=== PATIENT | female | born 1940 | race Caucasian/White ===

== ENCOUNTER 2018-03-21 11:05 | Emergency (ER) | payer MEDICARE, BC ==
[~2018-03-21] VITALS: Ht 165.1 cm; Wt 65.0 kg
[~2018-03-21 11:05] MED LIST: ADLT ASA LOW81 MG PO; ANTIVERT12.5 MG PO; ASPIRIN81 MG PO; ATENOLOL100 MG OR; ATENOLOL50 MG PO; ATIVAN0.5 MG PO; CARDIZEM CD 180 PO; COQ-10100 M1 PO; COUMADIN5 MG PO; CRESTOR10 MG PO; DIGOXIN0.125 MG PO; DILTIAZEM240 MG PO; DONEPEZIL5 MG PO; GABAPENTIN100 MG PO; GLYBURID MCR3 MG OR; HYDRALAZINE25 MG OR; IMDUR30 MG PO; INDOCIN25 MG PO; LASIX40 MG PO; LEVEMIR1000 UNITS SC; LISINOPRIL20 MG OR; LORTAB 5/3255 MG PO; METOPROL TAR25 MG PO; NEPHRO-VIT1 PO; NIFEDIPINE10 MG OR; PLAVIX75 MG OR; PROTONIX20 M1 PO; RENAL PO; TRICOR48 MG PO; WARFARIN2.5 MG PO; WARFARIN3 MG PO; WARFARIN5 MG PO; ZOCOR40 MG OR
[2018-03-21 11:48] LABS: HEMATOCRIT 36.1 % (37.0-47.0); HEMOGLOBIN 11.7 g/dl (12.0-16.0); IMMATURE GRANULOCYTES 0.5 % (0.0-5.0); MEAN CELL VOLUME 98.6 fL CALC (80.0-100.0); MEAN CORPUSCULAR HGB CONC 32.4 g/L CALC (32.0-36.0); NEUT# 6.2 thou/uL (2.00-7.15); RED BLOOD COUNT 3.66 mill/uL (4.20-5.60); RED CELL DISTRI WIDTH 13.2 % (11.5-15.5)
[2018-03-21 11:57] LABS: ALBUMIN 4.4 g/dL (3.2-5.0); BILIRUBIN, TOTAL 0.6 mg/dL (0.0-1.4); CREATININE 4.2 mg/dL (0.5-1.0); INTERNATIONAL NORMALIZED RATIO 1.9 RATIO (0.7-1.3); POTASSIUM 5.1 mmol/l (3.5-5.1); TOTAL PROTEIN 6.8 g/dL (6.3-8.2)
[2018-03-21] MEDS ORDERED: FLEXERIL PO (12:55)
[2018-03-21 13:18] VITALS: BP 145/57
== END 2018-03-21 13:28 | disposition home or self-care (01) ==
LOC: ED 11:05
PROVIDERS: Emergency Medicine
DX: R25.2 Cramp and spasm (principal); E11.22 Type 2 diabetes mellitus with diabetic chronic kidney disease; I12.0 Hypertensive chronic kidney disease with stage 5 chronic kidney disease or end stage renal disease; N18.6 End stage renal disease; Z99.2 Dependence on renal dialysis
CPT/HCPCS: J3360

== ENCOUNTER → 2018-03-31 | Outpatient (REF) | payer MEDICARE, BC ==
[~2018-03-31] MED LIST changes: +FLEXERIL PO
== END | disposition home or self-care (01) ==
LOC: ULTRASND 11:00
PROVIDERS: ATTEND Nurse Practitioner Adult Health
DX: R60.0 Localized edema (principal); M79.605 Pain in left leg

== ENCOUNTER 2018-07-06 14:20 | Emergency (ER) | payer MEDICARE, BC ==
[~2018-07-06] VITALS: Ht 165.1 cm; Wt 63.6 kg
[2018-07-06 15:28] LABS: HEMATOCRIT 36.9 % (37.0-47.0); IMMATURE GRANULOCYTES 0.3 % (0.0-5.0); MEAN CELL VOLUME 95.1 fL CALC (80.0-100.0); MEAN CORPUSCULAR HGB 30.9 pG CALC (26.0-32.0); MEAN CORPUSCULAR HGB CONC 32.5 g/L CALC (32.0-36.0); NEUT# 4.7 thou/uL (2.00-7.15); RED BLOOD COUNT 3.88 mill/uL (4.20-5.60); RED CELL DISTRI WIDTH 14.6 % (11.5-15.5)
[2018-07-06] MEDS ORDERED: WARFARIN3 MG PO ×2 (15:30→15:54)
[2018-07-06] MEDS ORDERED: RENVELA800 MG PO (15:31)
[2018-07-06] MEDS ORDERED: LORAZEPAM0.5 MG PO (15:34)
[2018-07-06] MEDS ORDERED: LANTUS100 UNIT/M SC (15:35)
[2018-07-06] MEDS ORDERED: LABETALOL200 MG PO (15:35)
[2018-07-06] MEDS ORDERED: AMLODIPINE5 MG PO (15:36)
[2018-07-06] MEDS ORDERED: LORTAB 1010 MG PO (15:37)
[2018-07-06 15:43] LABS: ALBUMIN 4.1 g/dL (3.2-5.0); BILIRUBIN, TOTAL 0.6 mg/dL (0.0-1.4); CREATININE 2.8 mg/dL (0.5-1.0); POTASSIUM 4.4 mmol/l (3.5-5.1); TOTAL PROTEIN 6.4 g/dL (6.3-8.2)
[2018-07-06 16:40] VITALS: BP 147/90
== END 2018-07-06 16:40 | disposition home or self-care (01) ==
LOC: ED 14:20
PROVIDERS: Emergency Medicine
DX: M46.92 Unspecified inflammatory spondylopathy, cervical region (principal); R79.89 Other specified abnormal findings of blood chemistry; M54.2 Cervicalgia; M25.511 Pain in right shoulder; Z95.0 Presence of cardiac pacemaker; I12.0 Hypertensive chronic kidney disease with stage 5 chronic kidney disease or end stage renal disease; N18.6 End stage renal disease; Z99.2 Dependence on renal dialysis

== ENCOUNTER 2018-07-31 06:30 | Emergency (ER) | payer MEDICARE, BC ==
[~2018-07-31] VITALS: Ht 165.1 cm; Wt 68.0 kg
[~2018-07-31 06:30] MED LIST changes: +AMLODIPINE5 MG PO; +LABETALOL200 MG PO; +LANTUS100 UNIT/M SC; +LORAZEPAM0.5 MG PO; +LORTAB 1010 MG PO; +RENVELA800 MG PO
[2018-07-31 07:39] LABS: HEMATOCRIT 40.8 % (37.0-47.0); HEMOGLOBIN 13.5 g/dl (12.0-16.0); IMMATURE GRANULOCYTES 0.6 % (0.0-5.0); MEAN CELL VOLUME 95.3 fL CALC (80.0-100.0); MEAN CORPUSCULAR HGB 31.5 pG CALC (26.0-32.0); MEAN CORPUSCULAR HGB CONC 33.1 g/L CALC (32.0-36.0); NEUT# 7.75 thou/uL (2.00-7.15); RED BLOOD COUNT 4.28 mill/uL (4.20-5.60); RED CELL DISTRI WIDTH 13.8 % (11.5-15.5)
[2018-07-31 07:51] LABS: ALBUMIN 4.3 g/dL (3.2-5.0); BILIRUBIN, TOTAL 1.3 mg/dL (0.0-1.4); CREATININE 4.3 mg/dL (0.5-1.0); TOTAL PROTEIN 6.8 g/dL (6.3-8.2)
[2018-07-31 07:52] LABS: POTASSIUM 5.3 mmol/l (3.5-5.1)
[2018-07-31 08:07] LABS: INTERNATIONAL NORMALIZED RATIO 1.4 RATIO (0.7-1.3)
[2018-07-31 08:08] LABS: PROTHROMBIN TIME 15.1 SECONDS (9.0-12.5)
[2018-07-31 09:30] VITALS: BP 166/89
== END 2018-07-31 13:21 ==
LOC: ED 06:30
PROVIDERS: Family Medicine
DX: R41.82 Altered mental status, unspecified (principal); I12.0 Hypertensive chronic kidney disease with stage 5 chronic kidney disease or end stage renal disease; E11.22 Type 2 diabetes mellitus with diabetic chronic kidney disease; N18.6 End stage renal disease; F03.90 Unspecified dementia, unspecified severity, without behavioral disturbance, psychotic disturbance, mood disturbance, and anxiety; Z99.2 Dependence on renal dialysis; Z91.15 Patient's noncompliance with renal dialysis
CPT/HCPCS: J2060

== ENCOUNTER 2018-08-06 12:47 | Emergency (ER) | payer MEDICARE, BC ==
[~2018-08-06] VITALS: Ht 165.1 cm; Wt 68.0 kg
[2018-08-06 13:20] LABS: HEMATOCRIT 35.7 % (37.0-47.0); HEMOGLOBIN 11.9 g/dl (12.0-16.0); IMMATURE GRANULOCYTES 0.4 % (0.0-5.0); MEAN CELL VOLUME 94.9 fL CALC (80.0-100.0); MEAN CORPUSCULAR HGB 31.6 pG CALC (26.0-32.0); MEAN CORPUSCULAR HGB CONC 33.3 g/L CALC (32.0-36.0); NEUT# 6.47 thou/uL (2.00-7.15); RED BLOOD COUNT 3.76 mill/uL (4.20-5.60); RED CELL DISTRI WIDTH 14.8 % (11.5-15.5)
[2018-08-06] MEDS ORDERED: RENVELA800 MG PO (13:32)
[2018-08-06] MEDS ORDERED: PROTONIX40 MG PO (13:32)
[2018-08-06] MEDS ORDERED: ATIVAN1 MG PO (13:33)
[2018-08-06] MEDS ORDERED: LABETALOL200 MG PO (13:34)
[2018-08-06] MEDS ORDERED: LANTUS100 UNIT/M SC (13:34)
[2018-08-06] MEDS ORDERED: LORTAB 1010 MG PO (13:35)
[2018-08-06] MEDS ORDERED: AMLODIPINE5 MG PO (13:35)
[2018-08-06] MEDS ORDERED: WARFARIN3 MG PO ×2 (13:36→13:37)
[2018-08-06 14:15] LABS: URINE BLOOD DIPSTICK MODERATE (NEGATIVE); URINE COLOR YELLOW; URINE GLUCOSE - DIPSTICK 100 mg/dL (NEGATIVE); URINE KETONE 15 mg/dL (NEGATIVE); URINE LEUK ESTERASE NEGATIVE (NEGATIVE); URINE NITRITE - DIPSTICK NEGATIVE (Negative); URINE PROTEIN - DIPSTICK >=300 mg/dL (NEG-TRACE); URINE UROBILINOGEN - DIPSTICK 0.2 E.U./dL (0.2)
[2018-08-06 14:16] LABS: URINE BILIRUBIN - DIPSTICK SMALL (NEGATIVE)
[2018-08-06 14:17] LABS: URINE EPITHELIAL CELLS MODERATE EPI/hpf (0-FEW); URINE MUCUS FEW hpf (NONE-FEW)
[2018-08-06 14:29] LABS: ALBUMIN 3.6 g/dL (3.2-5.0); BILIRUBIN, TOTAL 0.8 mg/dL (0.0-1.4); CREATININE 3.4 mg/dL (0.5-1.0); TOTAL PROTEIN 5.6 g/dL (6.3-8.2)
[2018-08-06 14:36] LABS: POTASSIUM 4.1 mmol/l (3.5-5.1)
[2018-08-06 18:30] VITALS: BP 130/61
== END 2018-08-06 18:37 ==
LOC: ED 12:47
PROVIDERS: Family Medicine
DX: R41.82 Altered mental status, unspecified (principal); E11.22 Type 2 diabetes mellitus with diabetic chronic kidney disease; I12.0 Hypertensive chronic kidney disease with stage 5 chronic kidney disease or end stage renal disease; N18.6 End stage renal disease; Z99.2 Dependence on renal dialysis; Z85.528 Personal history of other malignant neoplasm of kidney; Z95.0 Presence of cardiac pacemaker

== ENCOUNTER → 2018-08-23 | Outpatient (REF) | payer MEDICARE, BC ==
[~2018-08-23] MED LIST changes: +ATIVAN1 MG PO; +PROTONIX40 MG PO
[2018-08-23 13:10] LABS: URINE BILIRUBIN - DIPSTICK NEGATIVE (NEGATIVE); URINE BLOOD DIPSTICK LARGE (NEGATIVE); URINE COLOR YELLOW; URINE GLUCOSE - DIPSTICK NEGATIVE (NEGATIVE); URINE KETONE NEGATIVE (NEGATIVE); URINE NITRITE - DIPSTICK NEGATIVE (Negative); URINE PROTEIN - DIPSTICK >=300 mg/dL (NEG-TRACE); URINE SPECIFIC GRAVITY 1.015; URINE UROBILINOGEN - DIPSTICK 0.2 E.U./dL (0.2)
[2018-08-23 13:15] LABS: URINE LEUK ESTERASE SMALL (NEGATIVE)
[2018-08-23 13:16] LABS: URINE BACTERIA FEW hpf; URINE EPITHELIAL CELLS MODERATE EPI/hpf (0-FEW); URINE MUCUS MODERATE hpf (NONE-FEW)
== END | disposition home or self-care (01) ==
LOC: LABSPEC 10:58
PROVIDERS: ATTEND Internal Medicine
DX: N39.0 Urinary tract infection, site not specified (principal); B95.2 Enterococcus as the cause of diseases classified elsewhere

== ENCOUNTER 2018-09-30 19:34 | Emergency (ER) | payer MEDICARE, BC | END 2018-09-30 19:45 | disposition E | LOC: EDBD 19:34 → ED 19:34 | PROC: 0BH17EZ Insertion of Endotracheal Airway into Trachea, Via Natural or Artificial Opening (ICD-10-PCS; principal; 2018-09-30) | DX: I46.9 Cardiac arrest, cause unspecified (principal); Z95.0 Presence of cardiac pacemaker ==